=== PATIENT | female | born 1940 | race Caucasian/White ===

== ENCOUNTER → 2016-08-16 | Outpatient (REF) | payer MEDICARE, OTHER ==
[~2016-08-16] MED LIST: COZA100T2 PO; INDE1CAP5; LOSARTAN-HCTZ; NITR25SU3; POTA10PO PO
== END ==
LOC: M LAB REF 17:00
PROVIDERS: ATTEND Nurse Practitioner Adult Health
DX: N39.0 Urinary tract infection, site not specified (principal)

== ENCOUNTER 2016-08-17 09:17 | Emergency (ER) | payer MEDICARE, OTHER ==
[~2016-08-17] VITALS: Ht 157.5 cm; Wt 57.2 kg
[2016-08-17] MEDS ORDERED: LOSARTAN-HCTZ (09:32)
[2016-08-17] MEDS ORDERED: NITR25SU3 (09:32)
[2016-08-17] MEDS ORDERED: INDE1CAP5 (09:32)
[2016-08-17] MEDS ORDERED: NS 1,000 ML IV SCH (09:37)
[2016-08-17 10:29] LABS: BASO % 0.2 % (0.0-1.0); EOS % 0.2 % (0.0-3.0); LARGE UNSTAINED CELL # 0.1 K/mm3 (0.0-0.4); LARGE UNSTAINED CELL % 0.6 % (0.0-4.0); LYMPH # 0.6 K/mm3 (1.5-4.5); LYMPH % 2.4 % (24.0-44.0); MEAN CORPUSCULAR HEMOGLOBIN 30.2 pg (27.0-33.0); MEAN CORPUSCULAR HGB CONC 34.3 g/dl (32.0-36.5); MEAN CORPUSCULAR VOLUME 87.9 fl (80.0-96.0); MONO # 0.8 K/mm3 (0.0-0.8); MONO % 4.1 % (0.0-5.0); NEUTROPHILS # 17.5 K/mm3 (1.8-7.7); NEUTROPHILS % 92.5 % (36.0-66.0); PLATELET COUNT, AUTOMATED 257 k/mm3 (150-450); RED CELL DISTRIBUTION WIDTH 12.1 % (11.5-14.5); WHITE BLOOD COUNT 18.9 K/mm3 (4.0-10.0)
[2016-08-17 10:55] LABS: ALBUMIN 3.3 GM/DL (3.2-5.2); ALBUMIN/GLOBULIN RATIO 0.72 (1.00-1.93); BILIRUBIN,DIRECT 0.4 MG/DL (0.0-0.2); BILIRUBIN,TOTAL 1.2 MG/DL (0.2-1.0); CALCIUM LEVEL 9.3 MG/DL (8.8-10.2); CREATININE FOR GFR 1.02 MG/DL (0.55-1.02); GLOMERULAR FILTRATION RATE 56.4 (>39); POTASSIUM SERUM 2.7 MEQ/L (3.5-5.1); TOTAL PROTEIN 7.9 GM/DL (6.4-8.2)
[2016-08-17] MEDS ORDERED: POTASSIUM CHLORIDE 10 MEQ SR TABLET PO ONE (11:15)
[2016-08-17] MEDS ORDERED: POTASSIUM CHL PWD 20 MEQ PACKET PO ONE ×3 (11:30→13:15)
[2016-08-17] MEDS ORDERED: POTASSIUM CHL PWD 20 MEQ PACKET As Ordered ONE (11:33)
--- NOTE | 2016-08-17 12:30 | REP ---
CT ABDOMEN AND PELVIS WITHOUT IV CONTRAST: CT abdomen and pelvis performed without oral or IV contrast. Sagittal and coronal reconstruction images are performed. The visualized lung bases demonstrate fibroatelectatic changes. The liver, gallbladder, spleen, adrenals, pancreas and kidneys are grossly unremarkable. No renal or ureteral calculus is seen. There is no hydroureteronephrosis. No bladder calculi are seen. There is no abdominal aortic aneurysm. There are mild atherosclerotic calcifications of the abdominal aorta. I see no adenopathy. There is no free air or free fluid. I see no bowel wall thickening. There is no evidence of a pelvic mass. The patient appears to be have had a hysterectomy. IMPRESSION: Essentially negative noncontrast CT abdomen and pelvis. No renal or ureteral calculus and no hydroureteronephrosis. Signed by Lucien Matos MD 08/17/2016 05:37 P
[2016-08-17] MEDS ORDERED: cefTRIAXone SOD 1 GM in D5W MINI-BAG PLUS 50 ML IV ONE (13:15)
[2016-08-17] MEDS ORDERED: POTA10PO PO (13:17)
[2016-08-17 14:56] VITALS: BP 139/77
[2016-08-18] MEDS ORDERED: COZA100T2 PO (07:02)
--- NOTE | 2016-08-18 08:27 | ECGEPIP ---
Stationary ECG Study [facility] - ED Test Date: 2016-08-17 Pat Name: JASSI MERCEDES Department: Room: - Gender: F Burn Nurse: rn : 1940 Requested By: Mary Ambriz Order Number: [id number] Reading MD: Mary Ambriz Measurements Intervals [place] Rate: 90 P: 22 ME: 179 QRS: -16 QRSD: 96 T: 10 QT: 355 QTc: 435 Interpretive Statements SINUS RHYTHM VOLTAGE CRITERIA FOR LVH NONSPECIFIC ST & T-WAVE ABNORMALITY NO PRIOR FOR COMPARISON Electronically Signed On 08-18-2016 8:27:18 EDT by Mary Ambriz
== END 2016-08-17 15:04 | disposition home or self-care (01) ==
LOC: M ED 10:36
DX: N39.0 Urinary tract infection, site not specified (principal); E87.6 Hypokalemia; R01.1 Cardiac murmur, unspecified; Z79.899 Other long term (current) drug therapy
CPT/HCPCS: 74176; 80048; 80076; 81001; 83605; 83690; 85025; 87040; 87077; 87086; 87186; 93005; 93041; 96374; 99284; J0696

== ENCOUNTER 2016-08-18 06:42 | Emergency (ER) | payer MEDICARE, OTHER ==
[~2016-08-18] VITALS: Ht 160 cm; Wt 56.7 kg
[~2016-08-18 06:42] MED LIST changes: -COZA100T2 PO
[2016-08-18] MEDS ORDERED: COZA100T2 PO (07:02)
[2016-08-18] MEDS ORDERED: NS 500 ML IV ONE (07:30)
[2016-08-18] MEDS ORDERED: ONDANSETRON 4MG/2ML VIAL (J2405) IV ONE (07:30)
[2016-08-18 07:46] LABS: MEAN CORPUSCULAR HEMOGLOBIN 30.3 pg (27.0-33.0); MEAN CORPUSCULAR HGB CONC 33.6 g/dl (32.0-36.5); MEAN CORPUSCULAR VOLUME 90.3 fl (80.0-96.0); PLATELET COUNT, AUTOMATED 293 k/mm3 (150-450); RED CELL DISTRIBUTION WIDTH 12.4 % (11.5-14.5); WHITE BLOOD COUNT 13.8 K/mm3 (4.0-10.0)
[2016-08-18 08:10] LABS: ALBUMIN/GLOBULIN RATIO 0.81 (1.00-1.93); BILIRUBIN,TOTAL 0.8 MG/DL (0.2-1.0); CALCIUM LEVEL 8.6 MG/DL (8.8-10.2); CREATININE FOR GFR 1.13 MG/DL (0.55-1.02); GLOMERULAR FILTRATION RATE 50.1 (>39); POTASSIUM SERUM 3.5 MEQ/L (3.5-5.1); TOTAL PROTEIN 6.7 GM/DL (6.4-8.2)
[2016-08-18] MEDS ORDERED: cefTRIAXone SOD 1 GM in D5W MINI-BAG PLUS 50 ML IV ONE (08:15)
[2016-08-18 08:47] LABS: DIFF SLIDE NUMBER 90
[2016-08-18 09:21] LABS: ANISOCYTOSIS 1+; BANDS 1 % (< 11)
[2016-08-18 10:15] VITALS: BP 130/76
== END 2016-08-18 10:17 | disposition home or self-care (01) ==
LOC: M ED 08:07
DX: N39.0 Urinary tract infection, site not specified (principal); Z78.0 Asymptomatic menopausal state; Z79.899 Other long term (current) drug therapy; Z87.891 Personal history of nicotine dependence
CPT/HCPCS: 80053; 81001; 85007; 85027; 96374; 96375; 99283; J0696; J2405

== ENCOUNTER → 2016-10-15 | Outpatient (CLI) | payer MEDICARE, OTHER ==
[~2016-10-15] VITALS: Ht 160 cm; Wt 54.9 kg
[~2016-10-15] MED LIST changes: +COZA100T2 PO; +HYDR12CA PO; -INDE1CAP5; +INDE1CAP5 PO; +LIDOCAINE 2% INJ 100 MG/5 ML SDV (FOR ANES.) As Ordered ONE; +LOSA100T PO; +NS 1,000 ML IV ONE; +PROPOFOL 200 MG/20 ML VIAL As Ordered ONE
--- NOTE | 2016-10-15 10:50 | ROOR ---
Patient Name: Lars Washington Procedure Date: 10/15/2016 10:14 AM Date of : 1940 Age: 75 Room: [facility] Gender: Female Note Status: Finalized Procedure: Upper Endoscopy + Biopsies Indications: Heartburn Providers: Wilton Alba MD Referring MD: Jennifer Stewart NP Requesting Provider: Medicines: Monitored Anesthesia Care Complications: No immediate complications. Procedure: Pre-Anesthesia Assessment: - The heart rate, respiratory rate, oxygen saturations, blood pressure, adequacy of pulmonary ventilation, and response to care were monitored throughout the procedure. The Endoscope was introduced through the mouth, and advanced to the second part of duodenum. The upper GI endoscopy was accomplished without difficulty. The patient tolerated the procedure well. Findings: The Z-line was variable and was found 35 cm from the incisors. Multiple biopsies were obtained with cold forceps for evaluation to rule out Mora's Esophagus randomly at the gastroesophageal junction. A small hiatal hernia was present. No other significant abnormalities were identified in a careful examination of the stomach. The exam of the duodenum was otherwise normal. Impression: - Z-line variable, 35 cm from the incisors. - Small hiatal hernia. - Multiple biopsies were obtained at the gastroesophageal junction. - The examination was otherwise normal. Recommendation: - Patient has a contact number available for emergencies. The signs and symptoms of potential delayed complications were discussed with the patient. Return to normal activities tomorrow. Written discharge instructions were provided to the patient. - High fiber diet. - Discharge patient to home. - Follow an antireflux regimen. - Continue present medications. - Await pathology results. - Telephone GI clinic for pathology results in 1 week. - Check Portal Online for Path Results.([email or web address]) - The findings and recommendations were discussed with the patient's family. Wilton Alba MD Wilton Alba MD 10/15/2016 10:50:07 AM This report has been signed electronically. Number of Addenda: 0 Note Initiated On: 10/15/2016 10:14 AM Estimated Blood Loss: Estimated blood loss: none.
--- NOTE | 2016-10-15 10:54 | ROOR ---
Patient Name: Lars Washington Procedure Date: 10/15/2016 10:15 AM Date of : 1940 Age: 75 Room: [facility] Gender: Female Note Status: Finalized Procedure: Total Colonoscopy to Cecum + Cold Snare Polypectomy Indications: High risk colon cancer surveillance: Personal history of colonic polyps, Last colonoscopy: 2011 Providers: Wilton Alba MD Referring MD: Jennifer Stewart NP Requesting Provider: Medicines: Monitored Anesthesia Care Complications: No immediate complications. Procedure: Pre-Anesthesia Assessment: - The heart rate, respiratory rate, oxygen saturations, blood pressure, adequacy of pulmonary ventilation, and response to care were monitored throughout the procedure. The Colonoscope was introduced through the anus and advanced to the cecum, identified by appendiceal orifice and ileocecal valve. The colonoscopy was performed without difficulty. The patient tolerated the procedure well. The quality of the bowel preparation was excellent. Findings: The perianal and digital rectal examinations were normal. Non-bleeding internal hemorrhoids were found during retroflexion. The hemorrhoids were small and Grade I (internal hemorrhoids that do not prolapse). Multiple small and large-mouthed diverticula were found in the recto-sigmoid colon, sigmoid colon and descending colon. Two sessile polyps were found at 20 cm proximal to the anus. The polyps were small in size. These polyps were removed with a cold snare. Resection and retrieval were complete. The exam was otherwise without abnormality on direct and retroflexion views. Impression: - Non-bleeding internal hemorrhoids. - Diverticulosis in the recto-sigmoid colon, in the sigmoid colon and in the descending colon. - Two small polyps at 20 cm proximal to the anus, removed with a cold snare. Resected and retrieved. - The examination was otherwise normal on direct and retroflexion views. - The exam was otherwise normal to the cecum. Recommendation: - Patient has a contact number available for emergencies. The signs and symptoms of potential delayed complications were discussed with the patient. Return to normal activities tomorrow. Written discharge instructions were provided to the patient. - High fiber diet. - Discharge patient to home. - Continue present medications. - Await pathology results. - Telephone GI clinic for pathology results in 1 week. - Check Portal Online for Path Results.([email or web address] - Repeat colonoscopy for surveillance based on pathology results. - The findings and recommendations were discussed with the patient's family. Wilton Alba MD Wilton Alba MD 10/15/2016 10:53:57 AM This report has been signed electronically. Number of Addenda: 0 Note Initiated On: 10/15/2016 10:15 AM Estimated Blood Loss: Estimated blood loss: none.
[2016-10-15 11:30] VITALS: BP 121/66
== END | disposition home or self-care (01) ==
LOC: M OPP 09:19
PROVIDERS: ATTEND Internal Medicine Gastroenterology
DX: Z12.11 Encounter for screening for malignant neoplasm of colon (principal); D12.5 Benign neoplasm of sigmoid colon; K64.0 First degree hemorrhoids; K57.30 Diverticulosis of large intestine without perforation or abscess without bleeding; Z86.010 Personal history of colon polyps; R12 Heartburn; K22.8 Other specified diseases of esophagus; K44.9 Diaphragmatic hernia without obstruction or gangrene; I10 Essential (primary) hypertension; R01.1 Cardiac murmur, unspecified; M19.90 Unspecified osteoarthritis, unspecified site; G43.909 Migraine, unspecified, not intractable, without status migrainosus; Z87.440 Personal history of urinary (tract) infections; Z79.899 Other long term (current) drug therapy

== ENCOUNTER → 2016-11-14 | Day surgery (SDC) | payer MEDICARE, OTHER ==
[~2016-11-14] VITALS: Ht 160 cm; Wt 56.7 kg
[~2016-11-14] MED LIST changes: +ACETAMINOPHEN 325 MG TAB PO PRN; +ACETYLCHOLINE OPHTH SOLN 1% 2ML (MIOCHOL-E) As Ordered ONE; +AcetaZOLAMIDE 500 MG ER CAP PO ONE; +BALANCED SALT IRRIGATION SOLUTION 500ML BAG (FOR OR EYE MACHINE) As Ordered ONE; +CEFUROXIME 1MG/0.1ML INTRACAMERAL INJ As Ordered ONE; +CYCLOPENTOLATE 2% OPHTH SOLN 2ML BTL As Ordered ONE; +CYCLOPENTOLATE 2% OPHTH SOLN 2ML BTL OS ONE; +HEALON DUET (HEALON 10MG/ML 0.55ML & HEALON ENDOCOAT 30MG/ML 0.85ML) As Ordered ONE; +KETOROLAC 0.5% OPHTH SOLN OD ONE; +LIDOCAINE 1% SDV 5 ML VIAL As Ordered ONE; -LIDOCAINE 2% INJ 100 MG/5 ML SDV (FOR ANES.) As Ordered ONE; +LIDOCAINE 4% INJ 5 ML AMP OU ONE; -LOSA100T PO; +LOSA100T8 PO; +LR 500 ML IV ONE; +MIDAZOLAM INJ 2 MG/2 ML VIAL (J2250) As Ordered ONE; +MULTTAB4 PO; -NS 1,000 ML IV ONE; +OFLOXACIN 0.3 % (OCUFLOX) OPTH SOL 5ML As Ordered ONE; +OFLOXACIN 0.3 % (OCUFLOX) OPTH SOL 5ML OD ONE; +PHENYLEPHRINE 2.5% OPHTH SOL 2ML As Ordered ONE; +PHENYLEPHRINE 2.5% OPHTH SOL 2ML OD ONE; +POVIDONE-IODINE 5% OPHTH PREP SOL 30ML As Ordered ONE; +PROPARACAINE 0.5% OPHTH SOL 15ML OD PRN; -PROPOFOL 200 MG/20 ML VIAL As Ordered ONE; +TRIMETHOBENZAMIDE 300 MG CAP PO PRN; +TROPICAMIDE 1% OPHTH SOLN 2ML As Ordered ONE; +TROPICAMIDE 1% OPHTH SOLN 2ML OD ONE
[2016-11-14 12:00] VITALS: BP 125/72
--- NOTE | 2016-11-14 15:20 | RO ---
DATE OF PROCEDURE: 11/14/2016 PREPROCEDURE DIAGNOSIS: Age-related nuclear cataract, right eye. POSTPROCEDURE DIAGNOSIS: Age-related nuclear cataract, right eye. PROCEDURE: Femtosecond cataract extraction with posterior chamber intraocular lens implantation, right eye. The lens used was ZKB00, 22.0 diopters. SURGEON: Jazmine Nolasco MD FOOD SAFETY SCIENTIST: ANESTHESIA: Topical sedation. DESCRIPTION OF PROCEDURE: The patient was brought to the operating room and put under the femtosecond laser. A lid speculum was placed between the lids, and the laser was lowered on. Docking was achieved with good suction. The laser procedure was performed with no difficulty. The laser was then removed from the eye, and the lid speculum was removed. The laser was moved over to the operating microscope and prepped and draped in the usual fashion. A lid speculum was placed between the lids. The eye was fixated. The side port incision was opened up with a spatula. 1% non-preservative lidocaine was instilled; then, viscoelastic was instilled. The main incision was then opened with the spatula. The capsulorrhexis was removed from the eye with the Utrata forceps. The lens was then hydrodissected, and a phacoemulsification unit was used to make a groove in the nucleus and one meridian. The nucleus was cracked into four quadrants, and then each quadrant was removed with the phacoemulsification unit. Any remaining cortex was removed with the irrigation and aspiration (I and A) unit. The capsular bag was refilled with viscoelastic. A posterior chamber intraocular lens was placed in the capsular bag. The remaining viscoelastic was removed. The wound was hydrated. Miochol and cefuroxime were instilled. The wound was watertight. The patient tolerated the procedure well and went to the recovery room in stable condition.
== END | disposition home or self-care (01) ==
LOC: M SDC 10:30
PROVIDERS: ATTEND Ophthalmology
DX: H25.11 Age-related nuclear cataract, right eye (principal); I10 Essential (primary) hypertension; E78.00 Pure hypercholesterolemia, unspecified; G43.909 Migraine, unspecified, not intractable, without status migrainosus; K21.9 Gastro-esophageal reflux disease without esophagitis; R01.1 Cardiac murmur, unspecified; Z79.899 Other long term (current) drug therapy; Z90.710 Acquired absence of both cervix and uterus; Z86.010 Personal history of colon polyps; Z87.440 Personal history of urinary (tract) infections
CPT/HCPCS: 66984; J2250; V2788

== ENCOUNTER → 2016-11-21 | Day surgery (SDC) | payer MEDICARE, OTHER ==
[~2016-11-21] VITALS: Ht 160 cm; Wt 57.0 kg
[~2016-11-21] MED LIST changes: -CYCLOPENTOLATE 2% OPHTH SOLN 2ML BTL As Ordered ONE; +D5W/0.2% SODIUM CHLORIDE 250 ML IV ONE; -KETOROLAC 0.5% OPHTH SOLN OD ONE; +KETOROLAC 0.5% OPHTH SOLN OS ONE; -LR 500 ML IV ONE; -OFLOXACIN 0.3 % (OCUFLOX) OPTH SOL 5ML As Ordered ONE; -OFLOXACIN 0.3 % (OCUFLOX) OPTH SOL 5ML OD ONE; +OFLOXACIN 0.3 % (OCUFLOX) OPTH SOL 5ML OS ONE; -PHENYLEPHRINE 2.5% OPHTH SOL 2ML As Ordered ONE; -PHENYLEPHRINE 2.5% OPHTH SOL 2ML OD ONE; +PHENYLEPHRINE 2.5% OPHTH SOL 2ML OS ONE; -PROPARACAINE 0.5% OPHTH SOL 15ML OD PRN; +PROPARACAINE 0.5% OPHTH SOL 15ML OS PRN; -TROPICAMIDE 1% OPHTH SOLN 2ML As Ordered ONE; -TROPICAMIDE 1% OPHTH SOLN 2ML OD ONE; +TROPICAMIDE 1% OPHTH SOLN 2ML OS ONE; +fentaNYL 100 MCG/2 ML INJECTION (J3010) As Ordered ONE
[2016-11-21 12:10] VITALS: BP 158/89
--- NOTE | 2016-11-23 09:16 | RO ---
DATE OF PROCEDURE: 11/21/2016 PREPROCEDURE DIAGNOSIS: Age-related nuclear cataract, left eye. POSTPROCEDURE DIAGNOSIS: Age-related nuclear cataract, left eye. PROCEDURE: Femtosecond cataract extraction with posterior chamber intraocular lens left eye. Lens used is DLB 00, 22.0 diopters. SURGEON: Jazmine Nolasco MD DATA GOVERNANCE ANALYST: None. ANESTHESIA: Topical sedation. DESCRIPTION OF PROCEDURE: The patient was brought to the operating room and put under the Femtosecond laser. A lid speculum was placed between the lids and the laser was lowered on. Docking was achieved with good suction. The laser procedure was performed with no difficulty. The laser was then removed from the eye and the lid speculum was removed. The laser was moved over to the operating microscope and prepped and draped in the usual fashion. A lid speculum was placed between the lids. The eye was fixated. The side-port incision was opened up with a spatula. 1% non-preservative lidocaine was instilled; then viscoelastic was instilled. The main incision was then opened with the spatula. The capsulorrhexis was removed from the eye with the Utrata forceps. The lens then hydrodissected and a phacoemulsification was used to make a groove in the nucleus and one meridian. The nucleus was cracked into four quadrants and then each quadrant was removed with the phacoemulsification unit. Any remaining cortex was removed with the I+A unit. The capsular bag was refilled with viscoelastic. A posterior chamber intraocular lens was placed in the capsular bag. The remaining viscoelastic was removed. The wound was hydrated. Miochol and cefuroxime were instilled. The wound was water-tight. The patient tolerated the procedure well and went to the recovery room in stable condition.
== END | disposition home or self-care (01) ==
LOC: M SDC 10:15
PROVIDERS: ATTEND Ophthalmology
DX: H25.12 Age-related nuclear cataract, left eye (principal); I10 Essential (primary) hypertension; Z79.899 Other long term (current) drug therapy
CPT/HCPCS: 66984; J2250; J3010; V2788

== ENCOUNTER → 2019-11-27 | Outpatient (CLI) | payer MEDICARE, OTHER ==
[~2019-11-27] MED LIST changes: -ACETAMINOPHEN 325 MG TAB PO PRN; -ACETYLCHOLINE OPHTH SOLN 1% 2ML (MIOCHOL-E) As Ordered ONE; -AcetaZOLAMIDE 500 MG ER CAP PO ONE; -BALANCED SALT IRRIGATION SOLUTION 500ML BAG (FOR OR EYE MACHINE) As Ordered ONE; -CEFUROXIME 1MG/0.1ML INTRACAMERAL INJ As Ordered ONE; -CYCLOPENTOLATE 2% OPHTH SOLN 2ML BTL OS ONE; -D5W/0.2% SODIUM CHLORIDE 250 ML IV ONE; -HEALON DUET (HEALON 10MG/ML 0.55ML & HEALON ENDOCOAT 30MG/ML 0.85ML) As Ordered ONE; -INDE1CAP5 PO; +INDE60CA4 PO; -KETOROLAC 0.5% OPHTH SOLN OS ONE; -LIDOCAINE 1% SDV 5 ML VIAL As Ordered ONE; -LIDOCAINE 4% INJ 5 ML AMP OU ONE; -MIDAZOLAM INJ 2 MG/2 ML VIAL (J2250) As Ordered ONE; +MULT1TAB74 PO; -MULTTAB4 PO; -OFLOXACIN 0.3 % (OCUFLOX) OPTH SOL 5ML OS ONE; -PHENYLEPHRINE 2.5% OPHTH SOL 2ML OS ONE; -POVIDONE-IODINE 5% OPHTH PREP SOL 30ML As Ordered ONE; -PROPARACAINE 0.5% OPHTH SOL 15ML OS PRN; -TRIMETHOBENZAMIDE 300 MG CAP PO PRN; -TROPICAMIDE 1% OPHTH SOLN 2ML OS ONE; -fentaNYL 100 MCG/2 ML INJECTION (J3010) As Ordered ONE
== END ==
LOC: M LABSMTC 13:01
PROVIDERS: ATTEND Family Medicine
DX: Z11.59 Encounter for screening for other viral diseases (principal); Z20.828 Contact with and (suspected) exposure to other viral communicable diseases
CPT/HCPCS: C9803; U0003

== ENCOUNTER → 2021-01-10 | Outpatient (CLI) | payer MEDICARE, OTHER ==
--- NOTE | 2021-01-10 09:45 | REPMRS ---
Patient History The patient states she has not had a clinical breast exam in over a year. Patient is postmenopausal and has history of skin cancer at age 79. No known family history of cancer. Took estrogen for 5 years. Tomosynthesis is performed. Volpara breast density is c. Tyrer-Cuzick lifetime risk of breast cancer 1.8%. Patient states no breast complaints today. Patient has signed MRS History Sheet. Digital Woman Screen Mammo: January 10, 2021 - Exam #: [id number] Bilateral CC and MLO view(s) were taken. Technologist: Lisa Santos, Technologist Prior study comparison: December 11, 2019, bilateral digital mammo screening bilat, performed at [facility] [employer] [facility]. September 01, 2018, bilateral digital mammo screening bilat, performed at [facility] [employer] [facility]. FINDINGS: The breast tissue is heterogeneously dense. This may lower the sensitivity of mammography. There has been no change in the appearance of the mammogram from the prior studies. There is a moderate amount of residual fibroglandular tissue which is fairly symmetric. There is no interval development of dominant mass, areas of architectural distortion, or clustered microcalcification typical of malignancy. Assessment: BI-RADS/ACR category 1 mammogram. Negative Mammogram. Recommendation Routine screening mammogram in 1 year (for women over age 40). This mammogram was interpreted with the aid of an FDA-approved computer-aided dectection system. Electronically Signed By: Lucien Matos MD 01/10/21 0944
== END ==
LOC: M WHC 07:24
PROVIDERS: ATTEND Nurse Practitioner Adult Health
DX: Z12.31 Encounter for screening mammogram for malignant neoplasm of breast (principal); Z85.828 Personal history of other malignant neoplasm of skin

== ENCOUNTER → 2022-01-11 | Outpatient (CLI) | payer MEDICARE, OTHER | LOC: M WHC 08:52 | PROVIDERS: ATTEND Nurse Practitioner Adult Health | DX: Z12.31 Encounter for screening mammogram for malignant neoplasm of breast (principal); M81.0 Age-related osteoporosis without current pathological fracture ==

== ENCOUNTER 2024-01-14 09:30 | Emergency (ER) | payer MEDICARE, OTHER ==
[~2024-01-14] VITALS: Ht 157.5 cm; Wt 57.4 kg
[2024-01-14 09:30] VITALS: BP 141/68; TEMP 97.9; O2SAT 96
[~2024-01-14 09:30] MED LIST changes: -COZA100T2 PO; +LOSA-530 PO
== END 2024-01-14 11:19 | disposition home or self-care (01) ==
LOC: M ED 09:30
DX: R04.0 Epistaxis (principal); Z79.899 Other long term (current) drug therapy

== ENCOUNTER 2024-01-14 12:28 | Emergency (ER) | payer MEDICARE, OTHER ==
[~2024-01-14] VITALS: Ht 157.5 cm; Wt 57.5 kg
[2024-01-14 12:29] VITALS: TEMP 97.8
[2024-01-14 14:55] VITALS: BP 148/74; O2SAT 99
== END 2024-01-14 14:55 | disposition home or self-care (01) ==
LOC: M ED 12:28
DX: R04.0 Epistaxis (principal); I10 Essential (primary) hypertension; Z79.899 Other long term (current) drug therapy